=== PATIENT | female | born 1980 | race Caucasian/White ===

== ENCOUNTER → 2018-08-21 13:15 | Outpatient (CLI) | payer OTHER, SELFPAY ==
[2018-08-23 16:27] LABS: HPV Reflexed? NOT INDICATED
== END ==
PROVIDERS: Visit Provider Obstetrics & Gynecology
DX: Z12.4 Encounter for screening for malignant neoplasm of cervix (principal)
CPT/HCPCS: 87624; 88175; G0145

== ENCOUNTER 2020-09-01 09:44 | Outpatient (RCR) | payer OTHER, SELFPAY | END 2020-11-02 23:59 | LOC: IMMUN 09:44 | PROVIDERS: PCP Family Medicine; Referring Provider Family Medicine; Visit Provider Family Medicine | DX: Z23 Encounter for immunization (principal) | CPT/HCPCS: 0001A; 0002A; 91300 ==